=== PATIENT | female | born 1970 | race Caucasian/White ===

== ENCOUNTER 2017-03-27 09:55 | Outpatient (CLI) | payer OTHER ==
--- NOTE | 2017-03-27 15:55 | CT ---
NONCONTRAST CT ABDOMEN AND PELVIS: Date: 03-27-17 History: Right flank pain. History of renal calculi. History of prior lithotripsy. Comparison: 05-27-13 FINDINGS: There are nonobstructing bilateral renal calculi again seen. There is asymmetric perinephric strandin g seen on the right and there is mild prominence of the right ureter compared to the left, but no ure teral calculus is seen. No calculus is seen in the urinary bladder or along the expected course or th e urethra. Findings may be related to recent passage of a calculus. Given perinephric stranding on th e right, pyelonephrosis cannot be excluded based on this exam. There is a stable low density lesion in the lateral segment of the left hepatic lobe. The lung bases, spleen, pancreas, bilateral adrenal glands and incompletely distended urinary bladder demonstrate a grossly normal nonenhanced CT appearance. There is evidence of hysterectomy. A 2.1 cm hypodense lesion is seen in the right ovary likely related to small cyst. A tiny amount of free fluid is seen in the cul-de-sac which may be physiologic. The appendix is visualized and normal in caliber. There has been no other interval change compared to the prior exam. There is stable sclerotic densiti es in the right iliac bone probably related to bone islands. IMPRESSION: 1. Nonobstructing bilateral renal calculi. No ureteral calculus is seen bilaterally. There is asymmet golden right perinephric stranding and prominence of the right ureter. Findings may be related to recent passage of a calculus. No calculus is seen in the urinary bladder. Pyelonephritis on the right canno t be entirely excluded given asymmetric perinephric stranding. 2. Stable hypodense lesion left hepatic lobe. 3. Right ovarian cyst. 4. Hysterectomy. 5. No CT evidence of appendicitis. POS: [facility]
== END 2017-03-27 09:56 | disposition home or self-care (01) ==
LOC: CT 09:55
PROVIDERS: ATTEND Physician Assistant
DX: R10.9 Unspecified abdominal pain (principal); N20.0 Calculus of kidney; K76.9 Liver disease, unspecified; N83.201 Unspecified ovarian cyst, right side; Z90.710 Acquired absence of both cervix and uterus
CPT/HCPCS: 74176

== ENCOUNTER → 2017-04-13 | Day surgery (SDC) | payer OTHER ==
--- NOTE | 2017-04-13 11:12 | SPC ---
INSERTION OF CENTRAL CATHETER: Indication: Need for long-term antibiotic treatment. FINDINGS: A single lumen 5 Portuguese PICC line was placed into the left arm via the left cephalic vein under ultra sound guidance with fluoroscopic formation. The tip is positioned in the SVC. Exposure: 767 mGy*cm^2. PROCEDURE NOTE: Left upper extremity was prepped and draped in a sterile manner. Ultrasound was used to assess the ve nous structures. The cephalic vein in the mid humerus region was chosen for puncture. Local anesthesi a was administered with Lidocaine and bicarb. This vein was punctured under ultrasound guidance with micropuncture technique. Wire was introduced and positioned in the SVC. Catheter length was measured and cut. Sheath placed over the wire. Catheter was advanced over the wire. Peel-away sheath removed. Wire removed. Catheter was flushed and secured with sterile dressing. There were no problems or compl ications. POS: [facility]
== END ==
LOC: SPEC 08:43
PROVIDERS: ATTEND Internal Medicine Infectious Disease
PROC: B548ZZA Ultrasonography of Superior Vena Cava, Guidance (ICD-10-PCS; principal; 2017-04-13)
PROC: 02HV33Z Insertion of Infusion Device into Superior Vena Cava, Percutaneous Approach (ICD-10-PCS; principal; 2017-04-13)
DX: N30.00 Acute cystitis without hematuria (principal); Z88.2 Allergy status to sulfonamides
CPT/HCPCS: 36569; C1751

== ENCOUNTER 2018-06-18 16:58 | Emergency (ER) | payer OTHER ==
[2018-06-18 17:31] LABS: #Lymphocytes 1.1 thou/uL (1.20-3.40); #Monocytes 0.5 thou/uL (0.11-0.59); #Neutrophils 8.4 thou/uL (1.40-6.50); %Basophils 0.3 % (0.0-1.0); %Eosinophils 0.3 % (0.0-10.0); %Lymphocytes 10.8 % (21.0-51.0); %Monocytes 5.1 % (0.0-10.0); %Neutrophils 83.5 % (42.0-75.0); Hemoglobin 13.7 g/dL (12.0-16.0); Mean Corpuscular HGB CONC 32.8 g/dL (32.0-36.0); Mean Corpuscular Hemoglobin 30.5 pg (27.0-31.0); Mean Corpuscular Volume 92.9 fL (78.0-98.0); Mean Platelet Volume 8.1 fL (7.4-10.4); Platelet Count 280 thou/uL (130-400); RBC Distribution Width 11.8 % (11.5-14.5); Red Blood Cell (RBC) Count 4.48 mill/uL (4.20-5.40); White Blood Cell (WBC) Count 10.1 thou/uL (4.8-10.8)
[2018-06-18 17:54] LABS: ALT (SGPT) 11 U/L (8-55); AST (SGOT) 14 U/L (5-34); Albumin 4.2 g/dL (3.5-5.0); Alkaline Phosphatase 75 U/L (40-150); Anion Gap 13 mmol/L (10-20); BUN (Urea Nitrogen) 12 mg/dL (7.0-18.7); Bilirubin, Total 0.6 mg/dL (0.2-1.2); Calc. Creatinine Clearance 0 mL/min (70-130); Calcium 8.9 mg/dL (7.8-10.44); Carbon Dioxide 25 mmol/L (22-29); Chloride 106 mmol/L (98-107); Estimated GFR-MDRD 86; Globulin 2.6 g/dL (2.4-3.5); Glucose 95 mg/dL (70-105); Potassium 3.9 mmol/L (3.5-5.1); Protein, Total 6.8 g/dL (6.0-8.3); Sodium 140 mmol/L (136-145)
[2018-06-18 18:04] LABS: Bilirubin Small (Negative); Blood, Urine Large (Negative); Clarity CLEAR (Clear); Glucose, Urine (Dipstick) Negative (Negative); Leukocyte Negative (Negative); Nitrite Negative (Negative); Protein, Urine (Dipstick) Trace mg/dL (Neg-Trace); Specific Gravity, Urine 1.034 (1.002-1.036); Urobilinogen 0.2 mg/dL (0.2-1.0)
[2018-06-18 18:08] LABS: Pregnancy Test - Urine (BHCG) Negative (Negative); Pregu Control Background? CLEAR/WHITE (CLR/WHITE); Pregu Control Bar Appear? YES (CONTROL BAR); Specific Gravity 1.034 (1.002-1.036)
[2018-06-18 18:10] LABS: Bacteria/HPF None Seen HPF (None Seen); Hyaline Casts/LPF 0-3 HYALINE CAST LPF (0-3 Hyaline); Pathc Cast-AUWi Flag 0.43 (0-2.49); Squamous Epithelial 0-3 HPF (0-3); WBC/HPF 0-3 HPF (0-3)
[2018-06-18] MEDS ORDERED: Ondansetron PF 4 MG/2 ML Vial ONE (19:50)
[2018-06-18] MEDS ORDERED: Ketorolac Tromethamine 30 MG/ML VIAL ONE (19:50)
--- NOTE | 2018-06-18 21:18 | ULT ---
RENAL ULTRASOUND: INDICATIONS: Emergency room examination with right sided flank pain, nausea, and vomiting. COMPARISON: 07/13/2012 FINDINGS: No focal renal lesion or hydronephrosis is evident. There are two nonobstructing renal calculi. The one on the left measures 6 mm, within the inferior p ole. The one on the right measures 8 mm, within the inferior pole. The visualized bladder is unremarkable. The right kidney measures 9 x 4.7 x 4.2 cm. The left kidney measures 10.3 x 5.8 x 4.7 cm. The pre-v oid bladder volume is 20 mL. IMPRESSION: 1. No focal renal lesion or hydronephrosis. 2. Bilateral nephrolithiasis. POS: [facility]
--- NOTE | 2018-06-18 21:45 | ULT ---
ABDOMINAL ULTRASOUND LIMITED: INDICATIONS: Rule out appendicitis. COMPARISON: Prior CT of the abdomen and pelvis without contrast, dated 03/27/2017. FINDINGS: The appendix is not definitely visualized. There are numerous peristalsing bowel within the right lo wer quadrant. No definite free fluid is evident. IMPRESSION: Nonvisualization of appendix. No definite free fluid seen. POS: [facility]
== END 2018-06-18 22:21 | disposition home or self-care (01) ==
LOC: ERS 16:58
DX: R10.31 Right lower quadrant pain (principal); Z79.891 Long term (current) use of opiate analgesic; Z79.899 Other long term (current) drug therapy
CPT/HCPCS: 36415; 76705; 76770; 80053; 81003; 81015; 81025; 83690; 85025; 96361; 96374; 96375; J1885; J2405